=== PATIENT | female | born 1965 | race Caucasian/White ===

== ENCOUNTER 2017-12-15 08:11 | Emergency (ER) | payer OTHER ==
[2017-12-15 08:45] LABS: BASOPHILS # (AUTO) 0.1 10^3/uL (0.0-0.1); BASOPHILS % (AUTO) 0.9 %; EOSINOPHILS # (AUTO) 0.1 10^3/uL (0.0-0.7); EOSINOPHILS % (AUTO) 1.3 %; HGB - HEMOGLOBIN 14.3 g/dL (12.0-16.0); LYMPHOCYTES # (AUTO) 1.3 10^3/uL (1.5-3.5); LYMPHOCYTES % (AUTO) 20.3 %; MEAN CORPUSCULAR HEMOGLOBIN 30.5 pg (27.0-31.0); MEAN CORPUSCULAR VOLUME 89.5 fL (81.0-99.0); MEAN PLATELET VOLUME 7.8 fL (7.9-10.8); MONOCYTES # (AUTO) 0.4 10^3/uL (0.0-1.0); MONOCYTES % (AUTO) 6.1 %; NEUTROPHILS # (AUTO) 4.6 10^3/uL (1.5-6.6); NEUTROPHILS % (AUTO) 71.4 %; PLT - PLATELET COUNT 214 10^3/uL (130-450); RED CELL DISTRIBUTION WIDTH 13.6 % (12.0-15.0); WHITE BLOOD COUNT 6.5 x10^3/uL (4.8-10.8)
--- NOTE | 2017-12-15 08:47 | ED Physician Documentation ---
PD HPI ABD PAIN - Stated complaint Stated Complaint: ABD PX - Chief complaint Chief Complaint: Abd Pain - History obtained from History obtained from: Patient - History of Present Illness Timing - onset: How many weeks ago (1) Timing - duration: Weeks (1) Timing - details: Gradual onset, Intermittant Quality: Aching, Pain Location: RUQ (R lower rib pain) Worsened by: Eating, Moving Associated symptoms: Nausea. No: Fever, Vomiting, Hematemesis, Diarrhea, Constipation, Melena, Hematochezia, Dysuria Similar symptoms before: Has not had sx before Recently seen: Not recently seen Review of Systems Ten Systems: 10 systems reviewed and negative Constitutional: denies: Fever, Chills Ears: denies: Ear pain Nose: denies: Rhinorrhea / runny nose, Congestion Throat: denies: Sore throat Cardiac: denies: Chest pain / pressure, Palpitations Respiratory: denies: Dyspnea, Cough, Wheezing GI: reports: Nausea. 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 - Present Medications Home Medications: Ambulatory Orders Medication Instructions Recorded Confirmed Aspirin [Asperdrink] 81 mg PO 01/08/13 10/13/14 Metoprolol Succinate [Toprol Xl] 12.5 mg PO ONCE 01/08/13 10/13/14 Loratadine [Claritin] 10 mg PO BID 12/15/17 Polyethylene Glycol 3350 [Miralax] 17 gm PO DAILY PRN #1 bottle 12/15/17 Tumeric 12/15/17 raNITIdine [Zantac] 150 mg PO DAILY 12/15/17 - Allergies Allergies/Adverse Reactions: Allergies Allergy/AdvReac Type Severity Reaction Status Date / Time soy Allergy Nausea Verified 12/15/17 08:19 Sulfa (Sulfonamide Allergy Nausea Verified 12/15/17 08:19 Antibiotics) - Social History Does the pt smoke?: No Smoking Status: Never smoker Does the pt drink ETOH?: Yes Does the pt have substance abuse?: No - Immunizations Immunizations are current?: Yes - POLST Patient has POLST: No PD ED PE NORMAL - Vitals Vital signs reviewed: Yes - General General: Alert and oriented X 3, No acute distress - HEENT HEENT: Moist mucous membranes - Neck Neck: Supple, no meningeal sign - Cardiac Cardiac: RRR, Strong equal pulses - Respiratory Respiratory: No respiratory distress, Clear bilaterally - Abdomen Abdomen: Soft, Non distended, Other (TTP RUQ, equivocal araiza's sign) - Back Back: No CVA TTP, No spinal TTP - Derm Derm: Warm and dry, No rash - Neuro Neuro: Alert and oriented X 3 - Psych Psych: Normal mood, Normal affect Results - Vitals Vitals: Vital Signs - 24 hr 12/15/17 12/15/17 12/15/17 08:17 11:25 12:23 Temperature 36.7 C 36.5 C Heart Rate 84 81 81 Respiratory 16 16 14 Rate Blood Pressure 124/73 112/79 102/69 O2 Saturation 100 100 98 Oxygen O2 Source Room air - Labs Labs: Laboratory Tests 12/15/17 12/15/17 12/15/17 08:25 08:32 08:32 WBC 6.5 RBC 4.70 Hgb 14.3 Hct 42.0 MCV 89.5 MCH 30.5 MCHC 34.0 RDW 13.6 Plt Count 214 MPV 7.8 L Neut # 4.6 Lymph # 1.3 L [place] # 0.4 Eos # 0.1 Baso # 0.1 Absolute Nucleated RBC 0.00 Nucleated RBC % 0.0 Sodium 137 Potassium 3.4 L Chloride 104 Carbon Dioxide 27 Anion Gap 6.0 BUN 9 Creatinine 0.7 Estimated GFR (MDRD) 88 L Glucose 105 H Calcium 8.9 Total Bilirubin 0.6 AST 17 ALT 12 Alkaline Phosphatase 39 L Total Protein 7.4 Albumin 4.4 Globulin 3.0 Albumin/Globulin Ratio 1.5 Lipase 23 Urine Color STRAW Urine Clarity CLEAR Urine pH 6.5 Ur Specific [place] <=1.005 Urine Protein NEGATIVE Urine Glucose (UA) NEGATIVE Urine Ketones NEGATIVE Urine Occult Blood TRACE-LYSE Urine Nitrite NEGATIVE Urine Bilirubin NEGATIVE Urine Urobilinogen 0.2 (NORMAL) Ur Leukocyte Esterase NEGATIVE Ur Microscopic Review NOT INDICATED Urine Culture Comments NOT INDICATED - Rads (name of study) RUQ US Radiology: Prelim report reviewed, EMP read contemporaneously, See rad report ( Fatty infiltrated liver. No gallstone or biliary ductal dilatation. ) PD MEDICAL DECISION MAKING - ED course Complexity details: reviewed results, re-evaluated patient, considered differential, d/w patient, d/w family ED course: Patient is a 52-year-old female with right upper quadrant abdominal pain of unclear etiology. No acute findings on laboratory testing. Abdomen is soft, nontender nondistended on serial examination. She is very well-appearing, nontoxic.. Symptoms did not change much with GI cocktail. She does relate that she has been constipated we will try her on MiraLAX for home. We will see how she progresses over the next 2-3 days and follow-up closely with her doctor. Patient counseled regarding signs and symptoms for which I believe and urgent re-evaluation would be necessary. Patient with good understanding of and agreement to plan and is comfortable going home at this time This document was made in part using voice recognition software. While efforts are made to proofread this document, sound alike and grammatical errors may occur. Departure - Departure Disposition: 01 Home, Self Care Clinical Impression: Abdominal pain Qualifiers: Abdominal location: right upper quadrant Qualified Code(s): R10.11 - Right upper quadrant pain Condition: Good Instructions: ED Abdominal Pain Unkn Cause Follow-Up: LINDA LÓPEZ [Primary Care Provider] - Within 3 Days Prescriptions: Polyethylene Glycol 3350 [Miralax] 17 gm PO DAILY PRN #1 bottle PRN Reason: Constipation Comments: Return if you worsen. The cause of your symptoms is unclear today. Discharge Date/Time: 12/15/17 12:23
[2017-12-15 08:53] LABS: ALBUMIN 4.4 g/dL (3.2-5.5); ALBUMIN/GLOBULIN RATIO 1.5 (1.0-2.2); BILIRUBIN,TOTAL 0.6 mg/dL (0.2-1.0); CALCIUM 8.9 mg/dL (8.5-10.3); CREATININE 0.7 mg/dL (0.4-1.0); TOTAL PROTEIN 7.4 g/dL (6.7-8.2)
[2017-12-15 09:01] LABS: BILIRUBIN,URINE NEGATIVE (NEGATIVE); GLUCOSE, URINE (UA) NEGATIVE (NEGATIVE); KETONES,URINE (UA) NEGATIVE (NEGATIVE); LEUKOCYTE ESTERASE, URINE NEGATIVE (NEGATIVE); NITRITE,URINE NEGATIVE (NEGATIVE); OCCULT BLOOD,URINE TRACE-LYSE (NEGATIVE); PH,URINE 6.5 PH (5.0-7.5); PROTEIN,URINE NEGATIVE (NEGATIVE); UROBILINOGEN,URINE 0.2 (NORMAL) E.U./dL (NORMAL)
[2017-12-15] MEDS ORDERED: LIDOCAINE VISCOUS 2% 15 ML UDC MM STA (09:02)
[2017-12-15] MEDS ORDERED: PHENobarb/HYOSCY/ATROPINE/SCOP 5 ML UDC PO STA (09:02)
[2017-12-15] MEDS ORDERED: MAG HYDROX/AL HYDROX/SIMETH 30 ML UDC PO STA (09:02)
[2017-12-15] MEDS ORDERED: SUCRALFATE 1 GM/10 ML UDC PO STA (09:02)
[2017-12-15 09:05] LABS: CLARITY,URINE CLEAR (CLEAR)
--- NOTE | 2017-12-15 11:51 | Ultrasound Report ---
EXAM: ABDOMEN ULTRASOUND LIMITED, RUQ EXAM DATE: 12/15/2017 10:57 AM. CLINICAL HISTORY: RUQ pain. COMPARISON: None. TECHNIQUE: Real-time scanning was performed with static images obtained. FINDINGS: Liver: The parenchyma is echogenic diffusely. No definite focal masses are identified, but evaluatio n is limited secondary to the echogenicity. 14.8 cm. Main portal vein flow: Hepatopetal. Gallbladder: Normal. No stones, wall thickening, or sonographic Shaw's sign. Biliary System: CBD measures 4 mm. No intrahepatic or extrahepatic ductal dilatation. Other: Right kidney measured 11.3 cm longitudinally. No right hydronephrosis. IMPRESSION: 1. Fatty infiltrated liver. 2. No gallstone or biliary ductal dilatation. [facility] Referring Provider Line: [phone] SITE ID: [id number]
--- NOTE | 2017-12-15 11:51 | Ultrasound Preliminary Report ---
Exam: US ABDOMEN LIMITED IMPRESSION: 1. Fatty infiltrated liver. 2. No gallstone or biliary ductal dilatation. [facility] SITE ID: [id number]
[2017-12-15 12:23] VITALS: BP 102/69
== END 2017-12-15 12:23 | disposition home or self-care (01) ==
LOC: ED 08:11
DX: R10.11 Right upper quadrant pain (principal); Z79.82 Long term (current) use of aspirin
CPT/HCPCS: 36415; 76705; 80053; 81003; 83690; 85025; 99283; A9270; 81001; 87086

== ENCOUNTER 2017-12-21 06:55 | Emergency (ER) | payer OTHER ==
--- NOTE | 2017-12-21 07:34 | ED Physician Documentation ---
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 She soaks up to 1 pad every 2 hours. It is mostly bright red blood, with few small clots. She reports irregular menses, with 2 light menstrual periods previously in the past month. She reports associated right- sided lower abdominal pain. She also reports nausea, without vomiting. She denies fever or dysuria. She denies history of similar symptoms in the past. She was seen in the emergency department here 6 days ago with right upper quadrant abdominal pain. She was not experiencing vaginal bleeding at that time. She underwent an ultrasound of the right upper quadrant which revealed a fatty liver, but no other abnormalities. Surgical history: Status post C- section. Review of Systems Constitutional: denies: Fever Nose: denies: Congestion Cardiac: denies: Chest pain / pressure Respiratory: denies: Dyspnea, Cough GI: reports: Abdominal Pain, Nausea. denies: Vomiting, Diarrhea : reports: Vaginal bleeding, Irregular menses. 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 - Present Medications Home Medications: Ambulatory Orders Medication Instructions Recorded Confirmed Aspirin [Asperdrink] 81 mg PO 01/08/13 10/13/14 Metoprolol Succinate [Toprol Xl] 12.5 mg PO ONCE 01/08/13 10/13/14 Loratadine [Claritin] 10 mg PO BID 12/15/17 Polyethylene Glycol 3350 [Miralax] 17 gm PO DAILY PRN #1 bottle 12/15/17 Tumeric 12/15/17 raNITIdine [Zantac] 150 mg PO DAILY 12/15/17 Ibuprofen 1 tab PO 12/21/17 - Allergies Allergies/Adverse Reactions: Allergies Allergy/AdvReac Type Severity Reaction Status Date / Time soy Allergy Nausea Verified 12/21/17 07:01 Sulfa (Sulfonamide Allergy Nausea Verified 12/21/17 07:01 Antibiotics) - Social History Does the pt smoke?: No Smoking Status: Never smoker Does the pt drink ETOH?: Yes Does the pt have substance abuse?: No - Immunizations Immunizations are current?: Yes - POLST Patient has POLST: No PD ED PE NORMAL - Vitals Vital signs reviewed: Yes (Normal) - General General: Alert and oriented X 3, Well developed/nourished - HEENT HEENT: Atraumatic, Moist mucous membranes, Pharynx benign - Neck Neck: No adenopathy, No JVD - Cardiac Cardiac: RRR, No murmur - Respiratory Respiratory: No respiratory distress, Clear bilaterally - Abdomen Abdomen: Normal bowel sounds, Soft, Non tender, Non distended, Other (Benign abdomen.) - Female Female : 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 No: CMT, Tissue present, Adnexal Mass, Adnexal Tenderness Results - Vitals Vitals: Oxygen O2 Source Room air - Labs Labs: Laboratory Tests 12/21/17 12/21/17 12/21/17 07:22 07:22 07:30 WBC 6.1 RBC 4.10 L Hgb 12.4 Hct 36.6 L MCV 89.1 MCH 30.3 MCHC 34.0 RDW 13.4 Plt Count 195 MPV 7.6 L Neut # 4.4 Lymph # 1.2 L [place] # 0.4 Eos # 0.1 Baso # 0.0 Absolute Nucleated RBC 0.00 Nucleated RBC % 0.0 Sodium Potassium Chloride Carbon Dioxide Anion Gap BUN Creatinine Estimated GFR (MDRD) Glucose Calcium Total Bilirubin AST ALT Alkaline Phosphatase Total Protein Albumin Globulin Albumin/Globulin Ratio Lipase Urine Color YELLOW Urine Clarity CLEAR Urine pH 6.5 Ur Specific [place] 1.020 1.020 Urine Protein NEGATIVE Urine Glucose (UA) NEGATIVE Urine Ketones NEGATIVE Urine Occult Blood MODERATE H Urine Nitrite NEGATIVE Urine Bilirubin NEGATIVE Urine Urobilinogen 0.2 (NORMAL) Ur Leukocyte Esterase NEGATIVE Urine RBC 0-5 Urine WBC 0-3 Ur Squamous Epith Cells NONE SEEN Urine Bacteria Rare Ur Microscopic Review INDICATED Urine Culture Comments NOT INDICATED Urine HCG, Qual NEGATIVE 12/21/17 07:30 WBC RBC Hgb Hct MCV MCH MCHC RDW Plt Count MPV Neut # Lymph # [place] # Eos # Baso # Absolute Nucleated RBC Nucleated RBC % Sodium 138 Potassium 3.6 Chloride 104 Carbon Dioxide 26 Anion Gap 8.0 BUN 12 Creatinine 0.7 Estimated GFR (MDRD) 88 L Glucose 113 H Calcium 8.7 Total Bilirubin 0.6 AST 17 ALT 11 Alkaline Phosphatase 32 L Total Protein 6.7 Albumin 3.9 Globulin 2.8 Albumin/Globulin Ratio 1.4 Lipase 23 Urine Color Urine Clarity Urine pH Ur Specific [place] Urine Protein Urine Glucose (UA) Urine Ketones Urine Occult Blood Urine Nitrite Urine Bilirubin Urine Urobilinogen Ur Leukocyte Esterase Urine RBC Urine WBC Ur Squamous Epith Cells Urine Bacteria Ur Microscopic Review Urine Culture Comments Urine HCG, Qual PD MEDICAL DECISION MAKING - ED course Complexity details: reviewed old records, reviewed results, re-evaluated patient , considered differential, d/w patient, d/w family, d/w PMD ED course: The patient's presentation is most consistent with dysfunctional uterine bleeding in a logan-menopausal female. CBC is normal with a hemoglobin of 12.4. Her abdominal exam is benign, and her pelvic exam reveals no appreciable abnormalities except for blood in the vaginal vault. I discussed her condition with her operations tech, who recommends follow-up in his clinic where he will pursue further workup as an outpatient. I discussed with the patient and her the results of her ED workup, I discussion with her operations tech, outpatient follow-up, as well as potentially worrisome signs or symptoms that should prompt reevaluation in the emergency department. 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 Call today to schedule an appointment for early next week. Return to the emergency department if you develop increasing vaginal bleeding, lightheadedness, increasing abdominal pain, or otherwise worsening symptoms. Discharge Date/Time: 12/21/17 09:23
[2017-12-21 07:41] LABS: BASOPHILS % (AUTO) 0.8 %; EOSINOPHILS # (AUTO) 0.1 10^3/uL (0.0-0.7); HGB - HEMOGLOBIN 12.4 g/dL (12.0-16.0); LYMPHOCYTES # (AUTO) 1.2 10^3/uL (1.5-3.5); LYMPHOCYTES % (AUTO) 18.9 %; MEAN CORPUSCULAR HEMOGLOBIN 30.3 pg (27.0-31.0); MEAN CORPUSCULAR VOLUME 89.1 fL (81.0-99.0); MEAN PLATELET VOLUME 7.6 fL (7.9-10.8); MONOCYTES # (AUTO) 0.4 10^3/uL (0.0-1.0); NEUTROPHILS # (AUTO) 4.4 10^3/uL (1.5-6.6); NEUTROPHILS % (AUTO) 72.3 %; PLT - PLATELET COUNT 195 10^3/uL (130-450); RED CELL DISTRIBUTION WIDTH 13.4 % (12.0-15.0); WHITE BLOOD COUNT 6.1 x10^3/uL (4.8-10.8)
[2017-12-21 08:00] LABS: ALBUMIN 3.9 g/dL (3.2-5.5); ALBUMIN/GLOBULIN RATIO 1.4 (1.0-2.2); BILIRUBIN,TOTAL 0.6 mg/dL (0.2-1.0); CALCIUM 8.7 mg/dL (8.5-10.3); CREATININE 0.7 mg/dL (0.4-1.0); TOTAL PROTEIN 6.7 g/dL (6.7-8.2)
[2017-12-21 08:16] LABS: BILIRUBIN,URINE NEGATIVE (NEGATIVE); GLUCOSE, URINE (UA) NEGATIVE (NEGATIVE); KETONES,URINE (UA) NEGATIVE (NEGATIVE); LEUKOCYTE ESTERASE, URINE NEGATIVE (NEGATIVE); NITRITE,URINE NEGATIVE (NEGATIVE); OCCULT BLOOD,URINE MODERATE (NEGATIVE); PH,URINE 6.5 PH (5.0-7.5); PROTEIN,URINE NEGATIVE (NEGATIVE); UROBILINOGEN,URINE 0.2 (NORMAL) E.U./dL (NORMAL)
[2017-12-21 08:19] LABS: CLARITY,URINE CLEAR (CLEAR); HCG UR QUAL NEGATIVE
[2017-12-21 08:24] LABS: BACTERIA,URINE Rare /HPF (None Seen); RBC,URINE 0-5 /HPF (0-5); SQUAMOUS EPITHELIAL CELL,UR NONE SEEN (<= Few)
[2017-12-21 09:19] VITALS: BP 109/72
== END 2017-12-21 09:23 | disposition home or self-care (01) ==
LOC: ED 06:55
DX: N93.8 Other specified abnormal uterine and vaginal bleeding (principal); N92.4 Excessive bleeding in the premenopausal period; Z79.82 Long term (current) use of aspirin
CPT/HCPCS: 36415; 80053; 81001; 81003; 81025; 83690; 85025; 87086; 87491; 87591; 99283

== ENCOUNTER 2018-01-06 14:28 | Emergency (ER) | payer OTHER ==
[2018-01-06 15:02] VITALS: BP 111/79
[2018-01-06 15:30] LABS: BASOPHILS # (AUTO) 0.1 10^3/uL (0.0-0.1); BASOPHILS % (AUTO) 1.7 %; EOSINOPHILS # (AUTO) 0.1 10^3/uL (0.0-0.7); EOSINOPHILS % (AUTO) 0.8 %; HGB - HEMOGLOBIN 13.6 g/dL (12.0-16.0); LYMPHOCYTES # (AUTO) 1.6 10^3/uL (1.5-3.5); LYMPHOCYTES % (AUTO) 23.7 %; MEAN CORPUSCULAR HEMOGLOBIN 30.8 pg (27.0-31.0); MEAN CORPUSCULAR VOLUME 90.7 fL (81.0-99.0); MEAN PLATELET VOLUME 7.4 fL (7.9-10.8); MONOCYTES # (AUTO) 0.4 10^3/uL (0.0-1.0); MONOCYTES % (AUTO) 5.8 %; NEUTROPHILS # (AUTO) 4.6 10^3/uL (1.5-6.6); PLT - PLATELET COUNT 218 10^3/uL (130-450); RED BLOOD COUNT 4.43 10^6/uL (4.20-5.40); RED CELL DISTRIBUTION WIDTH 13.6 % (12.0-15.0); WHITE BLOOD COUNT 6.8 x10^3/uL (4.8-10.8)
[2018-01-06 15:44] LABS: ALBUMIN 4.2 g/dL (3.2-5.5); ALBUMIN/GLOBULIN RATIO 1.4 (1.0-2.2); BILIRUBIN,TOTAL 0.6 mg/dL (0.2-1.0); CALCIUM 8.9 mg/dL (8.5-10.3); CREATININE 0.6 mg/dL (0.4-1.0); TOTAL PROTEIN 7.2 g/dL (6.7-8.2)
--- NOTE | 2018-01-06 15:52 | ED Physician Documentation ---
PD HPI ABD PAIN - Stated complaint Stated Complaint: UP RT AB PX - Chief complaint Chief Complaint: Abd Pain - History obtained from History obtained from: Patient, Family - History of Present Illness Timing - duration: Months (1) Timing - details: Gradual onset, Waxing and waning Pain level max: 6 Pain level now: 5 Quality: Aching, Pain Location: RUQ, RLQ Radiation: Other (non-radiating) Improved by: Other (nothing) Worsened by: Eating Associated symptoms: No: Fever, Nausea, Vomiting, Hematemesis, Diarrhea, Constipation, Melena, Hematochezia, Dysuria, Hematuria Similar symptoms before: Diagnosis (abd pain, unknown origin.) Recently seen: Clinic ( and had CT scan. Unknown results.), Emergency Dept (last month for same. normal labs and RUQ US.) Review of Systems Constitutional: denies: Fever, Chills Ears: denies: Ear pain Nose: denies: Rhinorrhea / runny nose, Congestion Throat: denies: Sore throat Cardiac: denies: Chest pain / pressure Respiratory: denies: Cough GI: reports: Nausea. 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 - Present Medications Home Medications: Ambulatory Orders Medication Instructions Recorded Confirmed Aspirin [Asperdrink] 81 mg PO 01/08/13 10/13/14 Metoprolol Succinate [Toprol Xl] 12.5 mg PO ONCE 01/08/13 10/13/14 Loratadine [Claritin] 10 mg PO BID 12/15/17 Polyethylene Glycol 3350 [Miralax] 17 gm PO DAILY PRN #1 bottle 12/15/17 Tumeric 12/15/17 raNITIdine [Zantac] 150 mg PO DAILY 12/15/17 Ibuprofen 1 tab PO 12/21/17 Ondansetron Odt [Zofran] 4 mg TL Q6H PRN #10 tablet 01/06/18 Peg 3350/Na Sulf,Bicarb,Cl/KCl 4,000 ml PO ONCE #1 bottle 01/06/18 [Golytely] - Allergies Allergies/Adverse Reactions: Allergies Allergy/AdvReac Type Severity Reaction Status Date / Time soy Allergy Nausea Verified 12/21/17 07:01 Sulfa (Sulfonamide Allergy Nausea Verified 12/21/17 07:01 Antibiotics) - Social History Does the pt smoke?: No Smoking Status: Never smoker Does the pt drink ETOH?: Yes Does the pt have substance abuse?: No - Immunizations Immunizations are current?: Yes - POLST Patient has POLST: No PD ED PE NORMAL - Vitals Vital signs reviewed: Yes - General General: Alert and oriented X 3, No acute distress - HEENT HEENT: Moist mucous membranes - Neck Neck: Supple, no meningeal sign - Cardiac Cardiac: RRR - Respiratory Respiratory: Clear bilaterally - Abdomen Abdomen: Normal bowel sounds, Soft, Non tender, Non distended, No organomegaly - Back Back: No CVA TTP, No spinal TTP - Derm Derm: Warm and dry, No rash - Extremities Extremities: No edema - Neuro Neuro: Alert and oriented X 3 - Psych Psych: Normal mood, Normal affect Results - Vitals Vitals: Vital Signs - 24 hr 01/06/18 14:55 Temperature 37.0 C Heart Rate 94 Respiratory 16 Rate Blood Pressure 111/79 O2 Saturation 100 Oxygen O2 Source Room air - Labs Labs: Laboratory Tests 01/06/18 01/06/18 15:26 15:26 WBC 6.8 RBC 4.43 Hgb 13.6 Hct 40.1 MCV 90.7 MCH 30.8 MCHC 34.0 RDW 13.6 Plt Count 218 MPV 7.4 L Neut # (Auto) 4.6 Lymph # (Auto) 1.6 [place] # (Auto) 0.4 Eos # (Auto) 0.1 Baso # (Auto) 0.1 Absolute Nucleated RBC 0.00 Nucleated RBC % 0.0 Sodium 135 Potassium 3.2 L Chloride 102 Carbon Dioxide 25 Anion Gap 8.0 BUN 10 Creatinine 0.6 Estimated GFR (MDRD) 105 Glucose 105 H Calcium 8.9 Total Bilirubin 0.6 AST 18 ALT 11 Alkaline Phosphatase 36 L Total Protein 7.2 Albumin 4.2 Globulin 3.0 Albumin/Globulin Ratio 1.4 Lipase 27 PD MEDICAL DECISION MAKING - ED course Complexity details: reviewed results, re-evaluated patient, considered differential, d/w patient, d/w [employer] iam consultant ED course: CT scan from 01/03/18 performed at [facility] report reviewed with Janis over the phone. Only acute findings are a stool filled colon and prominent endometrial stripe. Patient is a 52-year-old female with ongoing abdominal pain over the past month. Recent CT scan shows significant constipation, we will trial her on laxatives for this and see how this changes her symptoms. She is tolerating p.o. without difficulty here. Well-appearing, nontoxic. Afebrile. No acute laboratory abnormalities. Recommend that she follow-up with her doctor for further care and if her symptoms are not resolved after treatment for constipation, she may benefit from a HIDA scan to ensure she does not have any biliary dysfunction. Patient and family counseled regarding signs and symptoms for which I believe and urgent re-evaluation would be necessary. Patient with good understanding of and agreement to plan and is comfortable going home at this time This document was made in part using voice recognition software. While efforts are made to proofread this document, sound alike and grammatical errors may occur. - Sepsis Event Vital Signs: Vital Signs - 24 hr 01/06/18 14:55 Temperature 37.0 C Heart Rate 94 Respiratory 16 Rate Blood Pressure 111/79 O2 Saturation 100 Oxygen O2 Source Room air Departure - Departure Disposition: 01 Home, Self Care Clinical Impression: Abdominal pain Qualifiers: Abdominal location: unspecified location Qualified Code(s): R10.9 - Unspecified abdominal pain Constipation Qualifiers: Constipation type: unspecified constipation type Qualified Code(s): K59.00 - Constipation, unspecified Condition: Good Instructions: ED Constipation Follow-Up: LINDA LÓPEZ [Primary Care Provider] - Within 1 week Prescriptions: Ondansetron Odt [Zofran] 4 mg TL Q6H PRN #10 tablet PRN Reason: Nausea / Vomiting Peg 3350/Na Sulf,Bicarb,Cl/KCl [Golytely] 4,000 ml PO ONCE #1 bottle Comments: Return if you worsen. You may benefit from a colonoscopy and hida scan with your doctor. Discharge Date/Time: 01/06/18 17:06
== END 2018-01-06 17:06 | disposition home or self-care (01) ==
LOC: ED 14:28
DX: R10.9 Unspecified abdominal pain (principal); K59.00 Constipation, unspecified
CPT/HCPCS: 36415; 80053; 83690; 85025; 99283

== ENCOUNTER 2018-05-06 08:37 | Emergency (ER) | payer OTHER ==
[2018-05-06 08:58] LABS: BILIRUBIN,URINE NEGATIVE (NEGATIVE); GLUCOSE, URINE (UA) NEGATIVE (NEGATIVE); KETONES,URINE (UA) NEGATIVE (NEGATIVE); LEUKOCYTE ESTERASE, URINE SMALL (NEGATIVE); NITRITE,URINE NEGATIVE (NEGATIVE); OCCULT BLOOD,URINE LARGE (NEGATIVE); PROTEIN,URINE NEGATIVE (NEGATIVE); UROBILINOGEN,URINE 0.2 (NORMAL) E.U./dL (NORMAL)
[2018-05-06 09:01] LABS: CLARITY,URINE CLEAR (CLEAR)
[2018-05-06 09:16] LABS: BACTERIA,URINE Rare /HPF (None Seen); RBC,URINE 0-5 /HPF (0-5); SQUAMOUS EPITHELIAL CELL,UR RARE Squamous (<= Few)
--- NOTE | 2018-05-06 10:07 | ED Physician Documentation ---
History of Present Illness - Stated complaint Stated Complaint: FEMALE - Chief complaint Chief Complaint: UTI - Additonal information Additional information: hx from pt 53 f dysuria X few days no back pain suprapubic discomfort Review of Systems Constitutional: denies: Fever Cardiac: denies: Chest pain / pressure Respiratory: denies: Dyspnea GI: reports: Abdominal Pain (suprapubic) : reports: Dysuria, Hematuria (red urine) Musculoskeletal: reports: Back pain PD PAST MEDICAL HISTORY - Past Medical History Past Medical History: Yes Cardiovascular: Arrhythmia GI: GERD : None Musculoskeletal: None - Past Surgical History 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 - Present Medications Home Medications: Ambulatory Orders Medication Instructions Recorded Confirmed Aspirin [Asperdrink] 81 mg PO 01/08/13 10/13/14 Metoprolol Succinate [Toprol Xl] 12.5 mg PO ONCE 01/08/13 10/13/14 Loratadine [Claritin] 10 mg PO BID 12/15/17 Polyethylene Glycol 3350 [Miralax] 17 gm PO DAILY PRN #1 bottle 12/15/17 Tumeric 12/15/17 raNITIdine [Zantac] 150 mg PO DAILY 12/15/17 Ibuprofen 1 tab PO 12/21/17 Ondansetron Odt [Zofran] 4 mg TL Q6H PRN #10 tablet 01/06/18 Peg 3350/Na Sulf,Bicarb,Cl/KCl 4,000 ml PO ONCE #1 bottle 01/06/18 [Golytely] Cephalexin [Keflex] 500 mg PO Q6H #28 capsule 05/06/18 - Allergies Allergies/Adverse Reactions: Allergies Allergy/AdvReac Type Severity Reaction Status Date / Time soy Allergy Nausea Verified 12/21/17 07:01 Sulfa (Sulfonamide Allergy Nausea Verified 12/21/17 07:01 Antibiotics) - Social History Does the pt smoke?: No Smoking Status: Never smoker Does the pt drink ETOH?: Yes Does the pt have substance abuse?: No - Immunizations Immunizations are current?: Yes - POLST Patient has POLST: No PD ED PE NORMAL - Vitals Vital signs reviewed: Yes - Neck Neck: Supple, no meningeal sign - Cardiac Cardiac: RRR - Respiratory Respiratory: No respiratory distress - Abdomen Abdomen: Soft, Other (mild suprapubic TTP, no focal RLQ TTP) - Back Back: No CVA TTP - Derm Derm: Normal color Results - Vitals Vitals: Vital Signs - 24 hr 05/06/18 08:42 Temperature 36.5 C Heart Rate 86 Respiratory 16 Rate Blood Pressure 115/70 O2 Saturation 100 Oxygen O2 Source Room air - Labs Labs: Laboratory Tests 05/06/18 08:40 Urine Color YELLOW Urine Clarity CLEAR Urine pH 6.0 Ur Specific [place] <=1.005 Urine Protein NEGATIVE Urine Glucose (UA) NEGATIVE Urine Ketones NEGATIVE Urine Occult Blood LARGE H Urine Nitrite NEGATIVE Urine Bilirubin NEGATIVE Urine Urobilinogen 0.2 (NORMAL) Ur Leukocyte Esterase SMALL H Urine RBC 0-5 Urine WBC 6-10 H Ur Squamous Epith Cells RARE Squamous Urine Bacteria Rare Ur Microscopic Review INDICATED Urine Culture Comments INDICATED PD MEDICAL DECISION MAKING - ED course ED course: red urine could have been the azo/pyridium she took or beets she ate - neg RBC on micro and no back pain - Sepsis Event Vital Signs: Vital Signs - 24 hr 05/06/18 08:42 Temperature 36.5 C Heart Rate 86 Respiratory 16 Rate Blood Pressure 115/70 O2 Saturation 100 Oxygen O2 Source Room air Departure - Departure Disposition: 01 Home, Self Care Clinical Impression: Urinary tract infection Qualifiers: Urinary tract infection type: acute cystitis Hematuria presence: without hematuria Qualified Code(s): N30.00 - Acute cystitis without hematuria Condition: Good Instructions: ED UTI Cystitis Female Follow-Up: LINDA LÓPEZ [Primary Care Provider] - (for a repeat urine test after completing antibiotics ) Prescriptions: Cephalexin [Keflex] 500 mg PO Q6H #28 capsule
[2018-05-06 10:15] VITALS: BP 104/77
== END 2018-05-06 10:18 | disposition home or self-care (01) ==
LOC: ED 08:37
DX: N30.00 Acute cystitis without hematuria (principal); Z79.82 Long term (current) use of aspirin
CPT/HCPCS: 81001; 81003; 87086; 87181; 99283

== ENCOUNTER 2019-08-07 07:39 | Day surgery (SDC) | payer OTHER ==
[2019-08-07] MEDS ORDERED: fentaNYL 250 MCG/5 ML VIAL IVP ONE (07:40)
[2019-08-07] MEDS ORDERED: MIDAZOLAM 2 MG/2 ML VIAL IVP ONE (07:40)
[2019-08-07] MEDS ORDERED: LACTATED RINGERS 1,000 ML IV ONE (07:49)
[2019-08-07 08:48] LABS: HCG UR QUAL NEGATIVE
[2019-08-07 10:45] VITALS: BP 102/75
== END 2019-08-07 07:40 | disposition home or self-care (01) ==
LOC: SDS 07:39
PROVIDERS: ATTEND Surgery
PROC: 0DJD8ZZ Inspection of Lower Intestinal Tract, Via Natural or Artificial Opening Endoscopic (ICD-10-PCS; principal; 2019-08-07 09:00)
DX: Z12.11 Encounter for screening for malignant neoplasm of colon (principal); K64.8 Other hemorrhoids
CPT/HCPCS: 81025

== ENCOUNTER 2019-09-01 10:08 | Outpatient (CLI) | payer OTHER ==
--- NOTE | 2019-09-16 15:04 | Mammography Report ---
Reason: ROUTINE MAMMO Procedure Date: 09/01/2019 Accession Number: [id number] / [id number] Procedure: MGS - Screening Mammo Dig Bilat CPT Code: Final Report FULL RESULT: EXAM: Screening Mammo Dig Bilat DATE: 09/01/2019 10:40 AM CLINICAL HISTORY: Screening encounter. History of early menses. History of prior breast biopsy on both sides with benign pathology. TECHNIQUE: (B) - Bilateral CC, laterally exaggerated CC, MLO views were obtained. COMPARISON: 05/20/2018 through 09/21/2015. PARENCHYMAL PATTERN: (VD) - The breast(s) demonstrate(s) extremely dense parenchyma, limiting the sensitivity of mammography. FINDINGS: A biopsy clip is again seen in the central left breast, unchanged. There are no suspicious masses, calcifications, or areas of distortion. IMPRESSION: Benign findings. BI-RADS category 2. RECOMMENDATION: (ANNUAL) - Recommend routine annual screening mammography. BI-RADS CATEGORY: (2) - Benign Findings. STANDARD QUALIFYING STATEMENTS: 1. This examination was reviewed with the aid of Computer-Aided Detection (CAD). 2. A negative or benign imaging report should not preclude biopsy if clinically suspicious findings are present. 3. Dense breasts may obscure an underlying neoplasm. 4. This examination was reviewed without the aid of 3D breast imaging (tomosynthesis).
== END 2019-09-01 10:09 | disposition home or self-care (01) ==
LOC: DI.S 10:08
DX: Z12.31 Encounter for screening mammogram for malignant neoplasm of breast (principal)
CPT/HCPCS: 77067

== ENCOUNTER 2020-08-23 09:16 | Outpatient (CLI) | payer OTHER ==
--- NOTE | 2020-08-23 12:00 | MRI Report ---
PROCEDURE: Lumbar Spine W/O INDICATIONS: LOW BACK PAIN TECHNIQUE: Noncontrast sagittal T1 spin echo and T2 fast echo, sagittal STIR, axial T1 and T2 fast spin echo thr ough the lumbar spine. In cases with scoliosis, additional coronal T2 fast spin echo may be performe d. COMPARISON: None. FINDINGS: Image quality: Excellent. Alignment and Curvature: No plain films are available for comparison. Thus, for numbering purposes, 5 lumbar type vertebral bodies will be presumed for the current report. This should be confirmed with plain film correlation prior to any lumbar spinal intervention. There is normal bony alignment. Bone Marrow: Marrow is of normal overall signal. No acute vertebral body compression fractures. Mi nimal reactive signal within the endplates adjacent to the L3-L4, L4-L5, and L5-S1 intervertebral dis cs. Spinal Cord: Conus medullaris terminates at the lower L1 level. Visualized cord demonstrates normal signal and size. Paraspinous Soft Tissues: No paravertebral masses. T12-L1: Normal in appearance. L1-L2: Normal in appearance. L2-L3: Mild disc desiccation and diffuse disc bulge. Mild facet and ligament flavum hypertrophy. M ild canal stenosis. Mild bilateral foraminal stenosis. L3-L4: Mild disc desiccation and diffuse disc bulge. Mild facet and ligament flavum hypertrophy. Mi ld epidural lipomatosis. Mild canal stenosis. Mild bilateral foraminal stenosis. L4-L5: Mild diffuse disc bulge. Mild facet and ligament flavum hypertrophy. Mild canal stenosis. Mi ld bilateral foraminal stenosis. L5-S1: Moderate disc height loss and desiccation. Mild diffuse disc bulge. Mild facet and ligament flavum hypertrophy. Mild canal stenosis. Mild left greater than right foraminal stenosis. IMPRESSION: 1. Multilevel degenerative disc and facet disease, in addition to epidural lipomatosis and ligamentum flavum hypertrophy. 2. Mild multilevel canal and foraminal stenoses. No neural impingement. Reviewed by: Carlin Goins MD on 08/23/2020 11:59 AM PST Approved by: Carlin Goins MD on 08/23/2020 11:59 AM PST Station ID: [id number]
== END 2020-08-23 09:17 | disposition home or self-care (01) ==
LOC: DI 09:16
PROVIDERS: ATTEND Physician Assistant
DX: M51.36 Other intervertebral disc degeneration, lumbar region (principal); M48.061 Spinal stenosis, lumbar region without neurogenic claudication

== ENCOUNTER 2022-06-24 03:55 | Emergency (ER) | payer OTHER ==
[2022-06-24] MEDS ORDERED: FAMOTIDINE 20 MG/2 ML VIAL IVP STA (04:01)
[2022-06-24] MEDS ORDERED: DEXAMETHASONE 10 MG/ML VIAL IVP STA (04:01)
[2022-06-24 06:24] VITALS: BP 118/81
--- NOTE | 2022-06-24 06:36 | ED Physician Documentation ---
History of Present Illness - Stated complaint Stated Complaint: FACIAL/NECK SWELLING - Chief complaint Chief Complaint: Allergic Rx - History obtained from History obtained from: Patient - Additonal information Additional information: Patient is a 57-year-old female presenting for evaluation of left-sided facial swelling and lower lip swelling that woke her up from her sleep. She reports going to bed with no symptoms. She has never had a reaction like this before. She takes metoprolol for blood pressure but has been on this for a long time. She does not take an OSCAR inhibitor.She felt tightness in her throat. She called EMS and was given IV fluids, 50 mg of Benadryl as well as IM epinephrine. She reports starting to feel improved.She denies any new exposures Or new medications. 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, Other - Present Medications Home Medications: Ambulatory Orders Medication Instructions Recorded Confirmed Metoprolol Succinate [Toprol Xl] 25 mg PO ONCE 01/08/13 06/24/22 Loratadine [Claritin] 10 mg PO BID PRN 12/15/17 06/24/22 Ibuprofen 1 tab PO DAILY 12/21/17 06/24/22 Ergocalciferol [Vitamin D2] 50,000 unit PO Q7D 08/07/19 06/24/22 Lactobacillus Acidophilus 1.5 mg PO DAILY 08/07/19 06/24/22 [Probiotic Acidophilus] Lorazepam [Ativan] 1 mg PO DAILY PRN 08/07/19 06/24/22 Magnesium Oxide [Magnesium] 500 mg PO DAILY 08/07/19 06/24/22 Melatonin 1 mg PO DAILY 08/07/19 06/24/22 Jean-3/Dha/Epa/Fish Oil [Fish Oil 1 each PO DAILY 08/07/19 06/24/22 1,000 mg Softgel] Turmeric/Turmeric Root Extract 1 cap PO DAILY 08/07/19 06/24/22 [Turmeric 500 mg Capsule] Aspirin EC [Ecotrin] 81 mg PO DAILY 06/24/22 06/24/22 Cetirizine [ZyrTEC] 10 mg PO DAILY #7 tablet 06/24/22 EPINEPHrine [Epinephrine] 0.3 mg IJ ONCE PRN #2 each 06/24/22 - Allergies Allergies/Adverse Reactions: Allergies Allergy/AdvReac Type Severity Reaction Status Date / Time amoxicillin Allergy Intermediate Rash Verified 06/24/22 03:59 soy Allergy Nausea Verified 06/24/22 03:59 Sulfa (Sulfonamide Allergy Nausea Verified 06/24/22 03:59 Antibiotics) - Social History Does the pt smoke?: No Smoking Status: Never smoker Does the pt drink ETOH?: Yes Does the pt have substance abuse?: No - Immunizations Immunizations are current?: Yes - POLST Patient has POLST: No PD ED PE NORMAL - General General: Alert and oriented X 3, No acute distress, Well developed/nourished - HEENT HEENT: Atraumatic, Moist mucous membranes, Pharynx benign (No swelling to tongue, uvula, normal phonation), Other (Swelling to left lower lip and left face; No fluctuance or palpable mass) - Neck Neck: Supple, no meningeal sign - Cardiac Cardiac: RRR, Strong equal pulses - Respiratory Respiratory: No respiratory distress, Clear bilaterally - Abdomen Abdomen: Soft, Non tender - Derm Derm: Warm and dry - Extremities Extremities: No edema - Neuro Neuro: Normal speech Results - Vitals Vitals: Vital Signs - 24 hr 06/24/22 06/24/22 06/24/22 03:59 04:07 04:40 Temperature 36.9 C Heart Rate 110 H 108 H 111 H Respiratory 16 21 16 Rate Blood Pressure 140/77 H 136/89 H 128/82 H O2 Saturation 100 100 99 06/24/22 06/24/22 05:50 06:24 Temperature 37.1 C Heart Rate 88 87 Respiratory 14 16 Rate Blood Pressure 128/82 H 118/81 H O2 Saturation 100 100 Oxygen O2 Source Room air PD MEDICAL DECISION MAKING - ED course Complexity details: re-evaluated patient, d/w patient, d/w family ED course: Patient presenting for evaluation of swelling to the left lower lip and left face. Exam is concerning for angioedema. Her speech is normal and I do not see signs of oral swelling such as tongue or uvular edema.Her lungs are clear and vital signs are stable. She did receive IM epi from the paramedics as well as Benadryl. She was also given Decadron. Patient was monitored for several hours. Patient had significant clinical improvement in her symptoms Through this time. She continued to have mild swelling to the left lower lip but it is also improved from her initial presentation.She did not require any further doses of epinephrine.Given that patient had significant improvement in her symptoms feel that is reasonable to discharge home. Patient counseled on continued management as well as strict return precautions. She is instructed to follow-up with her primary care doctor for allergy referral. Departure - Departure Disposition: Home, Self Care Clinical Impression: Angioedema Qualifiers: Encounter type: initial encounter Qualified Code(s): T78.3XXA - Angioneurotic edema, initial encounter Condition: Stable Instructions: ED Angioedema Prescriptions: EPINEPHrine [Epinephrine] 0.3 mg IJ ONCE PRN #2 each PRN Reason: Allergy Symptoms Cetirizine [ZyrTEC] 10 mg PO DAILY #7 tablet Comments: You were treated for an allergic reaction - It is unclear what triggered this. I sent a prescription for an EpiPen And an antihistamine to [facility] in [place]. He did also received a dose of a steroid here which is a long-acting steroid and will continue to be in your system for the next 72 hours. Please make sure to take these medications as prescribed. If you at any time have any worsening or new symptoms then please call 911 or return to the ER immediately. I would also recommend close follow-up with your primary care doctor as you may benefit from a referral to an legal collector given your reaction today.
== END 2022-06-24 06:52 | disposition home or self-care (01) ==
LOC: EDUNIT# → ED 03:55
DX: T78.3XXA Angioneurotic edema, initial encounter (principal)
CPT/HCPCS: 96374; 99282

== ENCOUNTER 2022-09-28 19:45 | Emergency (ER) | payer OTHER ==
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
--- NOTE | 2022-09-28 20:23 | ED Physician Documentation ---
History of Present Illness - Stated complaint Stated Complaint: ABD PX/TONGUE - Chief complaint Chief Complaint: Ext Problem - History obtained from History obtained from: Patient - Additonal information Additional information: Patient states she is having "attack of angioedema", "going on all day" (per patient). Symptoms started this morning without apparent inciting event nor circumstances. Symptoms consist of cramping abdominal pain, bloating sensation of abdomen, and lightheadedness. She says she has had many such previous episodes although only recently was diagnosed with angioedema. Patient has a printed document with her with [facility] letterhead. It is dated 09/14/2022 and indicates patient diagnosed with acquired angioedema, disorder of C1 inhibitor. Said letter points out that epinephrine, glucocorticoids, and antihistamines are all not indicated due to not being effective for this disorder. The letter lists pharmacologic options (C1 inhibitor such as Cinryze, Berinert, or Ruconest), ecallantide (Kalbitor), Icatibant (Firazyr). If none available, can consider FFB, though solvent/detergent-treated plasma preferred. Patient says she self-administered SQ Firazyr at home approximately one hour [employer]; she says she feels mild improvement in symptoms after using this medication. She only had a single dose of this medication at home. She contacted her test eng (spoke with an on-call covering MD), who advised her to come to ED. Patient noted "tongue has been a little swollen" for approximately 2 weeks, but in elaborating on this, she says it is more of a sensation of burning and swelling rather than visible/overt swelling. Denies dyspnea, denies lip swelling, denies sensation of throat constriction. Review of Systems Constitutional: denies: Fever Respiratory: denies: Dyspnea, Cough GI: reports: Abdominal Pain, Abdominal Swelling (bloating sensation), Nausea. 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 - Present Medications Home Medications: Ambulatory Orders Medication Instructions Recorded Confirmed Metoprolol Succinate [Toprol Xl] 25 mg PO ONCE 01/08/13 09/28/22 Loratadine [Claritin] 10 mg PO BID PRN 12/15/17 09/28/22 Ibuprofen 1 tab PO DAILY 12/21/17 06/24/22 Ergocalciferol [Vitamin D2] 50,000 unit PO Q7D 08/07/19 06/24/22 Lactobacillus Acidophilus 1.5 mg PO DAILY 08/07/19 06/24/22 [Probiotic Acidophilus] Lorazepam [Ativan] 1 mg PO DAILY PRN 08/07/19 06/24/22 Magnesium Oxide [Magnesium] 500 mg PO DAILY 08/07/19 06/24/22 Melatonin 1 mg PO DAILY 08/07/19 06/24/22 [place]-3/Dha/Epa/Fish Oil [Fish Oil 1 each PO DAILY 08/07/19 09/28/22 1,000 mg Softgel] Turmeric/Turmeric Root Extract 1 cap PO DAILY 08/07/19 06/24/22 [Turmeric 500 mg Capsule] Cetirizine [ZyrTEC] 10 mg PO DAILY #7 tablet 06/24/22 EPINEPHrine [Epinephrine] 0.3 mg IJ ONCE PRN #2 each 06/24/22 Enoxaparin Sodium [Lovenox] 60 mg SQ BID #14 appful 08/28/22 Apixaban [Eliquis] 5 mg PO BID 09/28/22 09/28/22 Berotralstat Hydrochloride 09/28/22 [Orladeyo] Icatibant Acetate [Icatibant] 30 mg SQ Q6HR PRN 09/28/22 09/28/22 - Allergies Allergies/Adverse Reactions: Allergies Allergy/AdvReac Type Severity Reaction Status Date / Time amoxicillin Allergy Intermediate Rash Verified 09/28/22 21:59 aspirin Allergy Itching Verified 09/28/22 21:59 soy Allergy Nausea Verified 09/28/22 21:59 Sulfa (Sulfonamide Allergy Nausea Verified 09/28/22 21:59 Antibiotics) - Social History Does the pt smoke?: No Smoking Status: Never smoker Does the pt drink ETOH?: Yes Does the pt have substance abuse?: No - Immunizations Immunizations are current?: Yes - POLST Patient has POLST: No PD ED PE NORMAL - Vitals Vital signs reviewed: Yes - General General: Alert and oriented X 3, No acute distress, Well developed/nourished - HEENT HEENT: Moist mucous membranes, Pharynx benign, Other (no logan/intraoral swelling including lips, tongue, posterior oropharynx) - Cardiac Cardiac: RRR, No murmur - Respiratory Respiratory: No respiratory distress, Clear bilaterally - Abdomen Abdomen: Normal bowel sounds, Soft, Non tender, Non distended, Other (RLQ flat erythema (at injection site of the Firazyr)) Results - Vitals Vitals: Oxygen O2 Source Room air PD Medical Decision Making - ED course Complexity details: considered differential, d/w patient ED course: I discussed this case with Dr. Sparks (education reporter [facility]); she says she spoke with patient earlier tonight and advised her to come to ED. Her recommendation is 4-6 hours of observation in ED (preferably 6 hours) and if patient worsens in any way and at any time during this period of observation, to transfer patient to another facility that would have any of the medications listed on the treatment plan. [facility] does not have any of these medications and regarding FFP, Dr. 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 I also discussed patient's understandable concern that if she is discharged, how she might obtain more of the medication to use at home PRN; Dr. Sparks says that patient should contact the office in the morning and they will work on getting another dose of this medication to the patient (currently they are working on insurance approval and not only are these mediations difficult to find stocked in many pharmacies, they are also prohibitively expensive from an [id number] perspective). Patient is observed in ED for a little over 6 hours and she reports mild but n oticeable improvement since initial evaluation when she first arrived to ED. She is given IV NS slowly over 3 hours due to her report of decreased PO intake during the day. Return precautions discussed. I advised her of the follow up recommendations resulting from my discussion with Dr. Sparks. Departure - Departure Disposition: 01 Home, Self Care Clinical Impression: Angioedema Condition: Good Instructions: ED Angioedema Comments: After little over 6 hours of observation in the emergency department, you were symptoms have not worsened and thus you are appropriate for discharge at this time. As we discussed, this period of observation was the result of the discussion I had with the test eng covering for Dr. Pimentel (Dr. Sparks). You should contact your test eng's office in the morning when the office opens to discuss recommendations regarding follow-up appointment as well as whether another dose of the Firazyr can be provided or prescribed. Discharge Date/Time: 09/29/22 02:21
[2022-09-28] MEDS ORDERED: SODIUM CHLORIDE 0.9% 1,000 ML IV STA (22:13)
[2022-09-29 02:21] VITALS: BP 111/74
== END 2022-09-29 02:21 | disposition home or self-care (01) ==
LOC: ED 19:45
DX: T78.3XXA Angioneurotic edema, initial encounter (principal)
CPT/HCPCS: 36415; 99284

== ENCOUNTER 2022-10-09 12:15 | Outpatient (CLI) | payer OTHER ==
[2022-10-09] MEDS ORDERED: iohexoL-300 100 ML VIAL ONE (12:44)
[2022-10-09] MEDS ORDERED: iohexoL-300 100 ML VIAL IVP ONE (14:46)
[2022-10-09] MEDS ORDERED: DIATRIZOATE MEGLU/DIATRIZO SOD 30 ML BOTTLE PO ONE (14:46)
--- NOTE | 2022-10-09 16:21 | CT Report ---
PROCEDURE: CHEST W INDICATIONS: ANGIOEDEMA, SPENOMEGALY CONTRAST:100ml Omnipaque 300 TECHNIQUE: After the administration of intravenous contrast, 1 mm axial images were acquired from the pulmonary apices through the posterior costophrenic angles. Axial 5 mm soft tissue kernel reconstructions were performed as well as 8 mm axial MIP and coronal and sagittal 5 mm reformations. For radiation dose reduction, the following was used: automated exposure control, adjustment of mA and/or kV according to patient size. COMPARISON: CT angiogram of the chest dated 07/29/2016 FINDINGS: Image quality: Excellent. Lungs and pleura: No acute air space opacities. A few juxta fissural nodules are present associated with the left major fissure in the upper and lower left lung. No suspicious pulmonary parenchymal les ions. No pleural effusions or pneumothorax. Central and peripheral airways are patent and normal in caliber. Mediastinum: Heart size is normal. No pericardial effusion. No mediastinal or hilar adenopathy by size criteria. Thoracic aorta and central pulmonary arteries are normal in size. Esophagus is melissa l in caliber. No hiatal hernia. Bones and chest wall: No suspicious bony lesions. No vertebral body compression fractures. No axil jaylen or supraclavicular adenopathy by size criteria. The thyroid is normal in size and there are no incidental findings.. Abdomen: Reported separately. IMPRESSION: 1. No suspicious pulmonary parenchymal process. 2. No adenopathy in the chest. Reviewed by: Lida Partida MD on 10/09/2022 4:20 PM PDT Approved by: Lida Partida MD on 10/09/2022 4:20 PM PDT Station ID: [id number]
--- NOTE | 2022-10-09 16:28 | CT Report ---
PROCEDURE: ABDOMEN/PELVIS W INDICATIONS: ANGIOEDEMA, SPENOMEGALY CONTRAST: 100ml Omnipaque 300 TECHNIQUE: After the administration of IV and oral contrast, 5 mm thick sections acquired from the diaphragms to the symphysis. 5 mm thick coronal and sagittal reformats were acquired. For radiation dose reducti on, the following was used: automated exposure control, adjustment of mA and/or kV according to ebony ent size. COMPARISON: None FINDINGS: Image quality: Excellent. ABDOMEN: Lung bases: Lung bases are clear. Heart size is normal. Solid organs: Liver is normal in size with a smooth margin. No masses. Gallbladder is normal. Bilia ry system is non dilated. Pancreas enhances normally. No adrenal nodules. Kidneys demonstrate norm al size and enhancement, without hydronephrosis. The spleen is enlarged measuring 14.9 x 7.3 x 12.7 cm for a volume of 718 cc. There are no discrete p arenchymal lesions. No perisplenic ascites. Attenuation is uniform. Peritoneum and bowel: Bowel loops demonstrate normal wall thickness and caliber. Normal appendix. De compressed stomach. No free fluid or air. Nodes and vessels: No retroperitoneal or mesenteric adenopathy by size criteria. Aorta and inferior vena cava are normal in size. Miscellaneous: No ventral hernias. PELVIS: Genitourinary: Bladder wall thickness is normal. Anteverted uterus appears normal. Ovaries were not well seen. Mildly prominent left adnexal vessels. Miscellaneous: No inguinal hernias or adenopathy. Bones: No suspicious bony lesions. No vertebral body compression fractures. IMPRESSION: 1. Moderate splenomegaly. 2. No adenopathy in the abdomen or pelvis. Reviewed by: Lida Partida MD on 10/09/2022 4:27 PM PDT Approved by: Lida Partida MD on 10/09/2022 4:27 PM PDT Station ID: [id number]
== END 2022-10-09 12:16 | disposition home or self-care (01) ==
LOC: DI 12:15
PROVIDERS: ATTEND Family Medicine
DX: R16.1 Splenomegaly, not elsewhere classified (principal); T78.3XXD Angioneurotic edema, subsequent encounter; D84.1 Defects in the complement system
CPT/HCPCS: 71260; 74177; Q9963; Q9967

== ENCOUNTER 2022-11-10 12:14 | Emergency (ER) | payer OTHER ==
--- NOTE | 2022-11-10 12:52 | ED Physician Documentation ---
History of Present Illness - Stated complaint Stated Complaint: DIZZY/NAUSEA/HIGH HR - Chief complaint Chief Complaint: Neuro - History obtained from History obtained from: Patient - Additonal information Additional information: 57-year-old woman with C1 esterase deficiency causing intermittent angioedema usually with manifestations of stomach cramps presents for same. She was started on orladeyo about 2 months ago which has decreased her attacks. This morning around 4 AM developed stomach cramps consistent with prior episodes of intestinal angioedema and did take a shot of icatibant which improved it for several hours but is getting worse again and she wonders if she should take another shot. 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, Other - Present Medications Home Medications: Ambulatory Orders Medication Instructions Recorded Confirmed Metoprolol Succinate [Toprol Xl] 12.5 mg PO DAILY 01/08/13 11/10/22 Lactobacillus Acidophilus 1.5 mg PO DAILY 08/07/19 11/10/22 [Probiotic Acidophilus] Lorazepam [Ativan] 1 mg PO DAILY PRN 08/07/19 11/10/22 [place]-3/Dha/Epa/Fish Oil [Fish Oil 1 each PO DAILY 08/07/19 11/10/22 1,000 mg Softgel] EPINEPHrine [Epinephrine] 0.3 mg IJ ONCE PRN #2 each 06/24/22 11/10/22 Apixaban [Eliquis] 5 mg PO BID 09/28/22 11/10/22 Icatibant Acetate [Icatibant] 30 mg SQ Q6HR PRN 09/28/22 11/10/22 Berotralstat Hydrochloride 150 mg PO DAILY 11/10/22 11/10/22 [Orladeyo] Cetirizine [ZyrTEC] 10 mg PO BID 11/10/22 11/10/22 - Allergies Allergies/Adverse Reactions: Allergies Allergy/AdvReac Type Severity Reaction Status Date / Time amoxicillin Allergy Intermediate Rash Verified 11/10/22 12:39 aspirin Allergy Itching Verified 11/10/22 12:39 lisinopril Allergy Edema Verified 11/10/22 18:28 soy Allergy Nausea Verified 11/10/22 12:39 Sulfa (Sulfonamide Allergy Nausea Verified 11/10/22 12:39 Antibiotics) - Social History Does the pt smoke?: No Smoking Status: Never smoker Does the pt drink ETOH?: Yes Does the pt have substance abuse?: No - Immunizations Immunizations are current?: Yes - POLST Patient has POLST: No PD ED PE NORMAL - Vitals Vital signs reviewed: Yes - General General: Alert and oriented X 3, No acute distress - HEENT HEENT: Other (Visualized portions of the oropharynx and speech are normal.) - Abdomen Abdomen: Normal bowel sounds, Soft, Non tender - Extremities Extremities: No edema - Neuro Neuro: Alert and oriented X 3, Normal speech - Psych Psych: Normal mood, Normal affect Results - Vitals Vitals: Vital Signs - 24 hr 11/10/22 11/10/22 11/10/22 12:39 13:35 14:44 Temperature 36.8 C Heart Rate 99 83 92 Respiratory 16 16 18 Rate Blood Pressure 137/85 H 123/72 140/79 H O2 Saturation 99 100 100 11/10/22 11/10/22 11/10/22 15:11 15:47 16:21 Temperature Heart Rate 90 104 H 95 Respiratory 13 20 18 Rate Blood Pressure 121/71 122/73 126/80 O2 Saturation 100 100 100 11/10/22 11/10/22 11/10/22 16:58 17:12 17:30 Temperature Heart Rate 88 95 84 Respiratory 18 18 16 Rate Blood Pressure 130/69 108/65 108/65 O2 Saturation 100 100 99 11/10/22 11/10/22 18:05 18:30 Temperature Heart Rate 85 83 Respiratory 18 17 Rate Blood Pressure 112/68 112/68 O2 Saturation 100 100 Oxygen O2 Source Room air - EKG (time done) 1438 EKG releavant findings:: EKG personally interpreted by author of this note. Relevant findings are: Rate: Rate (enter#) (80) Rhythm: NSR [place]: Normal Intervals: Normal TN QRS: Normal Ischemia: Normal ST segments PD Medical Decision Making - ED course ED course: I spoke with the investigator utility bill complaints on-call for her investigator utility bill complaints at [facility] [place] [facility]. She does recommend that the patient self administer a second dose of icatibant since it has been greater than 6 hours (pt did this at [facility] 1320) and either 6 hours of observation here versus transfer to the [place]. This was discussed with the patient and she preferred observation here as it does not feel like a worse episode than she has had. I was called into the room around 2:30 PM. She had been having some palpitations and lightheadedness. She had transient sinus tachycardia on the monitor which had resolved by the time I got into the room. An EKG is being done. Otherwise she has no worsening of her other symptoms and still no sensation of oropharyngeal angioedema. She continued to be observed for a little over a total of 6 hours with improvement in her abdominal pain and never developed any sensation of swelling in the oropharynx. Departure - Departure Disposition: 01 Home, Self Care Clinical Impression: Angioedema Qualifiers: Encounter type: initial encounter Qualified Code(s): T78.3XXA - Angioneurotic edema, initial encounter Condition: Good Record reviewed to determine appropriate education?: Yes Instructions: ED Angioedema Comments: Call your doctor to arrange a follow-up appointment, make the next available appointment. In the interim, return anytime if worse or if new symptoms develop. Discharge Date/Time: 11/10/22 18:31
--- OUTSIDE RECORDS SUMMARY | 2022-11-10 13:17 | EXTERNAL MEDICAL SUMMARY RPT | Continuity of Care Document ---
:1965 Author Organization [facility] Address [address] [place] [address] Phone Care Team Providers Name Role Phone Unavailable Unavailable Unavailable Dale Rodriguez Md Unavailable Unavailable Allergies No information. Encounters No information. Functional Status No information. Immunizations No information. Medications date description facility 2022-08-28 00:00 aspirin [facility] 2022-08-29 00:00 cetirizine [facility] 2022-08-28 00:00 cyclobenzaprine [facility] [place] [facility] 2022-08-29 00:00 cyclobenzaprine [facility] 2022-08-28 00:00 cyclobenzaprine [facility] 2022-08-29 00:00 cyclobenzaprine [facility] [place] [facility] 2022-08-28 00:00 diclofenac sodium [facility] [place] [facility] 2022-08-29 00:00 [facility]ac [facility] 2022-08-28 [facility]of[facility]ac [facility] 2022-08-29 00:00 dic[facility]ofenac sodium [facility] 2022-08-28 00:00 metoprolol succinate [facility] [place] 2022-08-29 00:00 metoprolol succinate [facility] [place] Problems date description facility 2022-08-28 00:00 Edema of [facility] 2022-08-28 00:00 Edema [facility] 2022-08-28 00:00 Localized edema [facility] Procedures date description facility 2022-08-28 00:00 Visit Code Hold [facility] Results/Labs No information. Social History date description facility 2022-08-28 00:00 Never smoker [facility] [place] [facility] Vital Signs date measurement value units 2022-08-28 00:00 BMI 24.98 kg/m2 2022-08-28 00:00 BP_diastolic 90 mmHg 2022-08-28 00:00 BP_systolic 140 mmHg 2022-08-28 00:00 heart_rate 100 /min 2022-08-28 00:00 height_metric 162.56 cm 2022-08-28 00:00 height_standard 64 in 2022-08-28 00:00 respiration_rate 16 /min 2022-08-28 00:00 temperature_metric 36.72 C 2022-08-28 00:00 temperature_standard 98.1 F 2022-08-28 00:00 weight_metric 65.77 kg 2022-08-28 00:00 weight_standard 145 lb
[2022-11-10] MEDS ORDERED: SODIUM CHLORIDE 0.9% 1,000 ML IV STA (17:15)
[2022-11-10 18:06] VITALS: BP 112/68
== END 2022-11-10 18:31 | disposition home or self-care (01) ==
LOC: ED 12:14
DX: T78.3XXA Angioneurotic edema, initial encounter (principal); R00.0 Tachycardia, unspecified; R00.2 Palpitations; R42 Dizziness and giddiness
CPT/HCPCS: 93005; 96360; 99284

== ENCOUNTER 2023-07-03 15:09 | Outpatient (CLI) | payer OTHER ==
[2023-07-03 15:53] LABS: TROPONIN I HIGH SENSITIVITY 2.3 ng/L (2.3-14.8)
== END 2023-07-03 15:10 | disposition home or self-care (01) ==
LOC: LAB 15:09
PROVIDERS: ATTEND Internal Medicine Medical Oncology
DX: C88.4 Extranodal marginal zone B-cell lymphoma of mucosa-associated lymphoid tissue [MALT-lymphoma] (principal); R00.0 Tachycardia, unspecified
CPT/HCPCS: 36415; 81599; 82550; 84484; 93005

== ENCOUNTER 2023-07-19 14:30 | Emergency (ER) | payer OTHER ==
[2023-07-19 15:44] LABS: BASOPHILS # (AUTO) 0.1 10^3/uL (0.0-0.1); BASOPHILS % (AUTO) 0.9 %; EOSINOPHILS # (AUTO) 0.2 10^3/uL (0.0-0.7); EOSINOPHILS % (AUTO) 2.9 %; HCT - HEMATOCRIT 39.9 % (37.0-47.0); HGB - HEMOGLOBIN 13.2 g/dL (12.0-16.0); LYMPHOCYTES # (AUTO) 1.1 10^3/uL (1.5-3.5); LYMPHOCYTES % (AUTO) 20.9 %; MEAN CORPUSCULAR HEMOGLOBIN 29.1 pg (27.0-31.0); MEAN CORPUSCULAR HGB CONC 33.1 g/dL (32.0-36.0); MEAN CORPUSCULAR VOLUME 88.1 fL (81.0-99.0); MEAN PLATELET VOLUME 8.7 fL (7.9-10.8); MONOCYTES # (AUTO) 0.3 10^3/uL (0.0-1.0); MONOCYTES % (AUTO) 5.9 %; NEUTROPHILS # (AUTO) 3.8 10^3/uL (1.5-6.6); NEUTROPHILS % (AUTO) 69.2 %; PLT - PLATELET COUNT 209 10^3/uL (130-450); RED BLOOD COUNT 4.53 10^6/uL (4.20-5.40); RED CELL DISTRIBUTION WIDTH 13.8 % (12.0-15.0); WHITE BLOOD COUNT 5.5 x10^3/uL (4.8-10.8)
[2023-07-19 15:59] LABS: ALBUMIN 4.5 g/dL (3.2-5.5); BILIRUBIN,TOTAL 0.3 mg/dL (0.2-1.0); CALCIUM 9.4 mg/dL (8.5-10.3); CREATININE 0.7 mg/dL (0.6-1.3); MAGNESIUM 1.8 mg/dL (1.7-2.3); POTASSIUM 3.4 mmol/L (3.5-4.5); TOTAL PROTEIN 6.8 g/dL (6.4-8.9)
[2023-07-19] MEDS ORDERED: ONDANSETRON 4 MG/2 ML VIAL IVP STA (16:05)
[2023-07-19] MEDS ORDERED: SODIUM CHLORIDE 0.9% 1,000 ML IV STA (16:05)
[2023-07-19 16:12] LABS: THYROID STIMULATING HORMONE 1.63 uIU/mL (0.34-5.60)
--- NOTE | 2023-07-19 16:13 | ED Physician Documentation ---
History of Present Illness - Stated complaint Stated Complaint: HEART RACING,NAUSEA - Chief complaint Chief Complaint: Cardiac - History obtained from History obtained from: Patient - Additonal information Additional information: Patient is a 58-year-old female with a history of acquired angioedema and splenic lymphoma presenting for evaluation of feeling palpitations around 130 as she was sitting down at a desk. She reports feeling like her heart was racing and felt some nausea with it. Denies chest pain or shortness of air. States that since yesterday she has been kind of feeling some nausea with diarrhea and generally unwell. No fever, cough, difficulty breathing, abdominal pain. No throat swelling or symptoms of angioedema. Patient is on chemotherapy medications and is receiving Rituximab and last had a dose on Sunday. Review of Systems Constitutional: denies: Fever Cardiac: reports: Palpitations. 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, Other - Present Medications Home Medications: Ambulatory Orders Medication Instructions Recorded Confirmed Metoprolol Succinate [Toprol Xl] 12.5 mg PO DAILY 01/08/13 02/18/23 Lactobacillus Acidophilus 1.5 mg PO DAILY 08/07/19 02/18/23 [Probiotic Acidophilus] Lorazepam [Ativan] 1 mg PO DAILY PRN 08/07/19 02/18/23 [place]-3/Dha/Epa/Fish Oil [Fish Oil 1 each PO DAILY 08/07/19 02/18/23 1,000 mg Softgel] EPINEPHrine [Epinephrine] 0.3 mg IJ ONCE PRN #2 each 06/24/22 02/18/23 Apixaban [Eliquis] 5 mg PO BID 09/28/22 02/18/23 Icatibant Acetate [Icatibant] 30 mg SQ Q6HR PRN 09/28/22 02/18/23 Berotralstat Hydrochloride 150 mg PO DAILY 11/10/22 02/18/23 [Orladeyo] Cetirizine [ZyrTEC] 10 mg PO BID 11/10/22 02/18/23 - Allergies Allergies/Adverse Reactions: Allergies Allergy/AdvReac Type Severity Reaction Status Date / Time amoxicillin Allergy Intermediate Rash Verified 07/19/23 14:37 aspirin Allergy Itching Verified 07/19/23 14:37 lisinopril Allergy Edema Verified 07/19/23 14:37 soy Allergy Nausea Verified 07/19/23 14:37 Sulfa (Sulfonamide Allergy Nausea Verified 07/19/23 14:37 Antibiotics) - Social History Does the pt smoke?: No Smoking Status: Never smoker Does the pt drink ETOH?: Yes Does the pt have substance abuse?: No - Immunizations Immunizations are current?: Yes - POLST Patient has POLST: No PD ED PE NORMAL - General General: Alert and oriented X 3, No acute distress, Well developed/nourished - HEENT HEENT: Atraumatic, Moist mucous membranes - Neck Neck: Supple, no meningeal sign - Cardiac Cardiac: RRR, No murmur, Strong equal pulses - Respiratory Respiratory: No respiratory distress - Abdomen Abdomen: Normal bowel sounds, Soft, Non tender, Non distended - Derm Derm: Warm and dry - Neuro Neuro: Normal speech Results - Vitals Vitals: Vital Signs - 24 hr 07/19/23 07/19/23 14:37 16:43 Temperature 36.6 C Heart Rate 80 94 Respiratory 16 18 Rate Blood Pressure 142/70 H 150/70 H O2 Saturation 100 98 Oxygen O2 Source Room air - EKG (time done) 1436 EKG releavant findings:: EKG personally interpreted by author of this note. Relevant findings are: Rate 80, normal sinus rhythm, no STEMI, no ST depressions, QTc 469 - Labs Labs: Laboratory Tests 07/19/23 07/19/23 07/19/23 15:36 15:36 15:36 WBC 5.5 RBC 4.53 Hgb 13.2 Hct 39.9 MCV 88.1 MCH 29.1 MCHC 33.1 RDW 13.8 Plt Count 209 MPV 8.7 Neut # (Auto) 3.8 Lymph # (Auto) 1.1 L [place] # (Auto) 0.3 Eos # (Auto) 0.2 Baso # (Auto) 0.1 Absolute Nucleated RBC 0.00 Nucleated RBC % 0.0 Sodium 141 Potassium 3.4 L Chloride 105 Carbon Dioxide 31 Anion Gap 5.0 L BUN 12 Creatinine 0.7 Estimated GFR (MDRD) 86 L Glucose 96 Calcium 9.4 Magnesium 1.8 Total Bilirubin 0.3 AST 14 ALT 10 Alkaline Phosphatase 49 Troponin I High Sens 2.3 Total Protein 6.8 Albumin 4.5 Globulin 2.3 Albumin/Globulin Ratio 2.0 Lipase 45 TSH 1.63 PD Medical Decision Making - ED course Complexity details: reviewed results, re-evaluated patient, d/w patient ED course: Patient is a 58-year-old female Presenting for evaluation of palpitations. EKG demonstrates normal sinus rhythm. CBC, chemistries, TSH, troponin were obtained and reviewed and without any significant findings. Potassium was 3.4 and was given oral replacement. Chest x-ray is negative for consolidation or effusion. The patient is feeling better here after IV fluids and Zofran. However she does report a history of anxiety and reports feeling a little anxious and is requesting a dose of Ativan which she does take at home. No events on desk monitor here. Vital signs have been stable and I do not believe her symptoms suggest a pulmonary embolism. Patient has close follow-up with oncology already scheduled for tomorrow. She feels comfortable plan for discharge and is counseled on concerning symptoms to return for. Departure - Departure Disposition: 01 Home, Self Care Clinical Impression: Palpitations Condition: Stable Instructions: ED Palpitations Comments: Your evaluated for palpitations. Your EKG and your testing here including CBC, chemistries, troponin, TSH are all relatively normal. Potassium was 3.4 and you were given a oral replacement. Your EKG shows a regular sinus rhythm. Your chest x-ray is clear. We have not seen any abnormal events on the desk monitor here. Please have close follow-up with your oncologist and primary care provider. Return to the ER with any worsening symptoms. Forms: PCP List
[2023-07-19] MEDS ORDERED: POTASSIUM BICARB 25 MEQ TABLET PO ONE (16:31)
[2023-07-19 16:59] VITALS: O2SAT 98
[2023-07-19] MEDS ORDERED: LORazepam 0.5 MG TABLET PO STA (17:19)
[2023-07-19 17:54] VITALS: BP 133/80
--- NOTE | 2023-07-19 18:08 | XRAY Report ---
PROCEDURE: Chest 1 View X-Ray INDICATIONS: palpitations TECHNIQUE: One view of the chest was acquired. COMPARISON: 01/08/2013. FINDINGS: Surgical changes and devices: None. Lungs and pleura: No pleural effusions or pneumothorax. Lungs are clear. Mediastinum: Mediastinal contours appear normal. Heart size is normal. Bones and chest wall: No suspicious bony lesions. Overlying soft tissues appear unremarkable. IMPRESSION: No acute cardiopulmonary process. No focal consolidation. Reviewed by: Odin Cuevas MD on 07/19/2023 6:07 PM PST Approved by: Odin Cuevas MD on 07/19/2023 6:07 PM [facility] Station ID: [id number]
== END 2023-07-19 17:46 | disposition home or self-care (01) ==
LOC: ED 14:30
DX: R00.2 Palpitations (principal); I10 Essential (primary) hypertension
CPT/HCPCS: 36415; 71045; 80053; 83690; 83735; 84443; 84484; 85025; 93005; 96361; 96374; 99284; A9270

== ENCOUNTER 2023-09-15 08:00 | Outpatient (CLI) | payer OTHER ==
[2023-09-15 20:45] LABS: BACTERIAL VAGINOSIS DNA NEGATIVE (NEGATIVE); CANDIDA GLABRATA DNA NEGATIVE (NEGATIVE); CANDIDA GROUP DNA NEGATIVE (NEGATIVE); CANDIDA KRUSEI DNA NEGATIVE (NEGATIVE); TRICHOMONAS VAGINALIS DNA NEGATIVE (NEGATIVE)
== END 2023-09-15 23:59 | disposition home or self-care (01) ==
LOC: LAB.S 08:00
PROVIDERS: ATTEND Physician Assistant Medical
DX: R82.90 Unspecified abnormal findings in urine (principal); R30.0 Dysuria; N76.0 Acute vaginitis
CPT/HCPCS: 81514; 87086

== ENCOUNTER 2023-09-18 12:58 | Outpatient (CLI) | payer OTHER ==
[2023-09-19 07:11] LABS: ADENOVIRUS F 40/41 Not Detected (Not Detected); ASTROVIRUS Not Detected (Not Detected); C DIFFICILE TOXIN A/B Not Detected (Not Detected); CAMPYLOBACTER Not Detected (Not Detected); CRYPTOSPORIDIUM Not Detected (Not Detected); CYCLOSPORA CAYETANENSIS Not Detected (Not Detected); ENTAMOEBA HISTOLYTICA Not Detected (Not Detected); ENTEROAGGREGATIVE E COLI Not Detected (Not Detected); ENTEROPATHOGENIC E COLI Not Detected (Not Detected); ENTEROTOXIGENIC E COLI Not Detected (Not Detected); GIARDIA LAMBLIA Not Detected (Not Detected); NOROVIRUS GI/GII Detected (Not Detected); PLESIOMONAS SHIGELLOIDES Not Detected (Not Detected); ROTAVIRUS A Not Detected (Not Detected); SALMONELLA Not Detected (Not Detected); SAPOVIRUS Not Detected (Not Detected); SHIGA-TOXIN-PRODUCING E COLI Not Detected (Not Detected); SHIGELLA/ENTEROINVASIVE E COLI Not Detected (Not Detected); VIBRIO Not Detected (Not Detected); VIBRIO CHOLERAE Not Detected (Not Detected); YERSINIA ENTEROCOLITICA Not Detected (Not Detected)
== END 2023-09-18 12:59 | disposition home or self-care (01) ==
LOC: LAB.R 12:58
DX: C83.07 Small cell B-cell lymphoma, spleen (principal)
CPT/HCPCS: 87507

== ENCOUNTER 2023-11-06 15:56 | Outpatient (CLI) | payer OTHER ==
--- NOTE | 2023-11-06 19:43 | XRAY Report ---
PROCEDURE: Foot 3+V RT (Weight Bearing) INDICATIONS: RIGHT FOOT PAIN TECHNIQUE: 3 views of the foot were acquired. COMPARISON: None. FINDINGS: Bones: No fractures or dislocations. No suspicious bony lesions. Small posterior calcaneal spur Soft tissues: No tibiotalar joint effusion. Achilles tendon appears normal. IMPRESSION: Small posterior calcaneal spur Reviewed by: Doni Reyna MD on 11/06/2023 6:42 PM [facility] Approved by: Doni Reyna MD on 11/06/2023 6:42 PM [facility] Station ID: [id number]
== END 2023-11-06 15:57 | disposition home or self-care (01) ==
LOC: DI 15:56
PROVIDERS: ATTEND Podiatrist
DX: M77.31 Calcaneal spur, right foot (principal); M79.671 Pain in right foot

== ENCOUNTER 2023-11-07 03:33 | Emergency (ER) | payer OTHER ==
--- NOTE | 2023-11-07 03:53 | ED Physician Documentation ---
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, Other - Present Medications Home Medications: Ambulatory Orders Medication Instructions Recorded Confirmed Metoprolol Succinate [Toprol Xl] 12.5 mg PO DAILY 01/08/13 02/18/23 Lactobacillus Acidophilus 1.5 mg PO DAILY 08/07/19 02/18/23 [Probiotic Acidophilus] Lorazepam [Ativan] 1 mg PO DAILY PRN 08/07/19 02/18/23 [place]-3/Dha/Epa/Fish Oil [Fish Oil 1 each PO DAILY 08/07/19 02/18/23 1,000 mg Softgel] EPINEPHrine [Epinephrine] 0.3 mg IJ ONCE PRN #2 each 06/24/22 02/18/23 Apixaban [Eliquis] 5 mg PO BID 09/28/22 02/18/23 Icatibant Acetate [Icatibant] 30 mg SQ Q6HR PRN 09/28/22 02/18/23 Berotralstat Hydrochloride 150 mg PO DAILY 11/10/22 02/18/23 [Orladeyo] Cetirizine [ZyrTEC] 10 mg PO BID 11/10/22 02/18/23 - Allergies Allergies/Adverse Reactions: Allergies Allergy/AdvReac Type Severity Reaction Status Date / Time amoxicillin Allergy Intermediate Rash Verified 11/07/23 03:41 aspirin Allergy Itching Verified 11/07/23 03:41 lisinopril Allergy Edema Verified 11/07/23 03:41 soy Allergy Nausea Verified 11/07/23 03:41 Sulfa (Sulfonamide Allergy Nausea Verified 11/07/23 03:41 Antibiotics) - Social History Does the pt smoke?: No Smoking Status: Never smoker Does the pt drink ETOH?: Yes Does the pt have substance abuse?: No - Immunizations Immunizations are current?: Yes - POLST Patient has POLST: No Results - Vitals Vitals: Vital Signs - 24 hr 11/07/23 11/07/23 03:38 03:41 Temperature 36.5 C Heart Rate 78 80 Respiratory 18 18 Rate Blood Pressure 129/89 H O2 Saturation 99 98 Oxygen O2 Source Room air Departure - Departure
--- NOTE | 2023-11-07 05:08 | ED Physician Documentation ---
History of Present Illness - Stated complaint Stated Complaint: SWOLLEN THROAT - Chief complaint Chief Complaint: Heent - Additonal information Additional information: Patient is a 58-year-old femaleWith past medical's significant for acquired angioedema, as well asSplenic lymphoma presenting with throat swelling. Reports has had the sensation of deep neck and throat swelling x 5 hours. Has rescue medication, incantanib without relief. which she gave herself a few hours ago. Has been managing her own secretions well. Denies any hoarseness or stridulous nests to her voice. Denies any fever, chills. 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, Other - Present Medications Home Medications: Ambulatory Orders Medication Instructions Recorded Confirmed Metoprolol Succinate [Toprol Xl] 12.5 mg PO DAILY 01/08/13 02/18/23 Lactobacillus Acidophilus 1.5 mg PO DAILY 08/07/19 02/18/23 [Probiotic Acidophilus] Lorazepam [Ativan] 1 mg PO DAILY PRN 08/07/19 02/18/23 [place]-3/Dha/Epa/Fish Oil [Fish Oil 1 each PO DAILY 08/07/19 02/18/23 1,000 mg Softgel] EPINEPHrine [Epinephrine] 0.3 mg IJ ONCE PRN #2 each 06/24/22 02/18/23 Apixaban [Eliquis] 5 mg PO BID 09/28/22 02/18/23 Icatibant Acetate [Icatibant] 30 mg SQ Q6HR PRN 09/28/22 02/18/23 Berotralstat Hydrochloride 150 mg PO DAILY 11/10/22 02/18/23 [Orladeyo] Cetirizine [ZyrTEC] 10 mg PO BID 11/10/22 02/18/23 - Allergies Allergies/Adverse Reactions: Allergies Allergy/AdvReac Type Severity Reaction Status Date / Time amoxicillin Allergy Intermediate Rash Verified 11/07/23 03:41 aspirin Allergy Itching Verified 11/07/23 03:41 lisinopril Allergy Edema Verified 11/07/23 03:41 soy Allergy Nausea Verified 11/07/23 03:41 Sulfa (Sulfonamide Allergy Nausea Verified 11/07/23 03:41 Antibiotics) - Social History Does the pt smoke?: No Smoking Status: Never smoker Does the pt drink ETOH?: Yes Does the pt have substance abuse?: No - Immunizations Immunizations are current?: Yes - POLST Patient has POLST: No PD ED PE NORMAL - General General: Alert and oriented X 3, No acute distress, Well developed/nourished - HEENT HEENT: Atraumatic, PERRL, EOMI, Ears normal, Moist mucous membranes, Pharynx benign, Dentition benign, Other - Neck Neck: Supple, no meningeal sign, No bony TTP, No adenopathy, Thyroid normal, No JVD, No bruit, C-Spine cleared by NEXUS criteria, Other - Cardiac Cardiac: RRR, No murmur, No gallop, Strong equal pulses - Respiratory Respiratory: No respiratory distress, Clear bilaterally, Other - Abdomen Abdomen: Normal bowel sounds, Soft, Non tender, No organomegaly - Female Female : Deferred - Rectal Rectal: Deferred - Back Back: No CVA TTP, No spinal TTP - Derm Derm: Normal color - Extremities Extremities: No deformity - Neuro Neuro: Alert and oriented X 3, 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, No motor deficit, No sensory deficit, Normal speech Results - Vitals Vitals: Vital Signs - 24 hr 11/07/23 11/07/23 11/07/23 03:38 03:41 04:10 Temperature 36.5 C Heart Rate 78 80 81 Respiratory 18 18 18 Rate Blood Pressure 129/89 H 125/79 O2 Saturation 99 98 99 11/07/23 11/07/23 11/07/23 04:30 04:58 05:30 Temperature Heart Rate 80 84 89 Respiratory 18 18 20 Rate Blood Pressure 126/81 H 127/78 127/74 O2 Saturation 100 99 100 11/07/23 06:00 Temperature Heart Rate 88 Respiratory 18 Rate Blood Pressure 118/73 O2 Saturation 98 Oxygen O2 Source Room air - Labs Labs: Laboratory Tests 11/07/23 04:15 Blood Type A POSITIVE PD Medical Decision Making - ED course Complexity details: reviewed old records, reviewed results, re-evaluated patient, considered differential, d/w patient, d/w family, d/w 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 Reports feelings of neck swelling x 4 hours prior to arrival. Gave herself a rescue dose of her prescribed C1 inhibitor. On arrival to the emergency department she is afebrile, hemodynamically stable. She has vesicular breath sounds with no appreciable soft tissue swelling in the posterior oropharynx, submental area or to the soft tissue of the neck. Initially upon arrival she requested consultation with her allergy service in [facility]. She refused all testing and treatment until this occurred. She did have documentation about plans including administration of different calcarine and inhibitors. None of these medications are readily available at this facility. She did initially verbally consent for the administration of fresh frozen plasma while we awaited consultation with her salon customer experience specialist. She initially declined any steroid treatment or racemic epinephrine. Discussed with Dr. Escoto, [place] [facility]. Dr. Escoto additionally had a long and detailed discussion with the patient. Reevaluation patient reported feeling essentially the same. Plan was made for the administration of fresh frozen plasma however she decided that she did not wish this and instead was only interested in trying a treatment of racemic epinephrine and plan was made in consultation with her salon customer experience specialist for administration of a second dose of her incantanib. This was self administered at 0515. Patient ultimately declined to consent for FFP. Pt monitored for An additional hour.Tolerated racemic epinephrine treatment without issue. At which time she reported feeling significantly better.Requested discharge from the emergency department. Was encouraged to keep her follow-up appointment with her salon customer experience specialist later this afternoon or return to the emergency department immediately for new or worsening symptoms. Departure - Departure Disposition: 01 Home, Self Care Clinical Impression: Angioedema Instructions: ED Angioedema Comments: Please keep your follow-up with your salon customer experience specialist. If it anytime you feel your symptoms are returning please either call 911 or return to the emergency department immediately. Forms: PCP List Discharge Date/Time: 11/07/23 06:24
[2023-11-07] MEDS: RACEPINEPHRINE 2.25% NEB INH STA (05:30)
[2023-11-07] MEDS: SODIUM CHLORIDE FOR INHALATION 5 ML NEB INH STA (05:30)
[2023-11-07 06:10] VITALS: BP 118/73; O2SAT 98
== END 2023-11-07 06:24 | disposition home or self-care (01) ==
LOC: ED 03:33
DX: T78.3XXA Angioneurotic edema, initial encounter (principal); I10 Essential (primary) hypertension
CPT/HCPCS: 36415; 86900; 86901; 94640; 94664; 99283; 99284

== ENCOUNTER 2024-04-20 13:43 | Emergency (ER) | payer OTHER ==
--- NOTE | 2024-04-20 14:13 | ED Physician Documentation ---
PD HPI DYSPNEA - Stated complaint Stated Complaint: HIGH BP, GASCA, NAUSEA - Chief complaint Chief Complaint: Cardiac - Additional information Additional information: 59-year-old female with history of factor V, Recently underwent chemo treatment for lymphoma, hypertension, heart palpitations presents emergency department for 1 week of generalized malaise and unwell feeling. Patient says it started out with a mild headache about a week ago but over time has progressed to increased nausea malingering headache that will not go away despite Tylenol ibuprofen chills no fevers no vomiting. Patient says that she has gotten headaches in the past but she has never had a headache that does not go away. She took her blood pressure today and it was 150/100 which is what presents her to the emergency department today. She is very concerned that her blood pressure with her headache. No chest pain or shortness of breath. 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, Other - Present Medications Home Medications: Ambulatory Orders Medication Instructions Recorded Confirmed Metoprolol Succinate [Toprol Xl] 12.5 mg PO DAILY 01/08/13 02/18/23 Lactobacillus Acidophilus 1.5 mg PO DAILY 08/07/19 02/18/23 [Probiotic Acidophilus] Lorazepam [Ativan] 1 mg PO DAILY PRN 08/07/19 02/18/23 [place]-3/Dha/Epa/Fish Oil [Fish Oil 1 each PO DAILY 08/07/19 02/18/23 1,000 mg Softgel] EPINEPHrine [Epinephrine] 0.3 mg IJ ONCE PRN #2 each 06/24/22 02/18/23 Apixaban [Eliquis] 5 mg PO BID 09/28/22 02/18/23 Icatibant Acetate [Icatibant] 30 mg SQ Q6HR PRN 09/28/22 02/18/23 Berotralstat Hydrochloride 150 mg PO DAILY 11/10/22 02/18/23 [Orladeyo] Cetirizine [ZyrTEC] 10 mg PO BID 11/10/22 02/18/23 - Allergies Allergies/Adverse Reactions: Allergies Allergy/AdvReac Type Severity Reaction Status Date / Time amoxicillin Allergy Intermediate Rash Verified 11/07/23 03:41 OSCAR Inhibitors Allergy Edema Verified 04/20/24 13:58 aspirin Allergy Itching Verified 11/07/23 03:41 lisinopril Allergy Edema Verified 11/07/23 03:41 soy Allergy Nausea Verified 11/07/23 03:41 Sulfa (Sulfonamide Allergy Nausea Verified 11/07/23 03:41 Antibiotics) - Social History Does the pt smoke?: No Smoking Status: Never smoker Does the pt drink ETOH?: Yes Does the pt have substance abuse?: No - Immunizations Immunizations are current?: Yes - POLST Patient has POLST: No PD ED PE NORMAL - Vitals Vital signs reviewed: Yes - General General: Alert and oriented X 3, No acute distress, Well developed/nourished - HEENT HEENT: Atraumatic, PERRL, EOMI - Neck Neck: Supple, no meningeal sign - Cardiac Cardiac: RRR - Respiratory Respiratory: No respiratory distress - Abdomen Abdomen: Normal bowel sounds, Soft, Non tender, Non distended, No organomegaly - Neuro Neuro: Alert and oriented X 3, 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 Relevant findings are: Rate: Rate (enter#) (80) Rhythm: NSR [place]: RAD Intervals: Normal VA QRS: Normal Ischemia: Normal ST segments Computer interpretation: Agree with computer - Labs Labs: Laboratory Tests 04/20/24 04/20/24 04/20/24 14:25 14:25 14:25 WBC 6.1 RBC 4.32 Hgb 12.8 Hct 38.0 MCV 88.0 MCH 29.6 MCHC 33.7 RDW 12.4 Plt Count 191 MPV 9.1 Neut # (Auto) 4.7 Lymph # (Auto) 0.7 L [place] # (Auto) 0.4 Eos # (Auto) 0.1 Baso # (Auto) 0.0 Absolute Nucleated RBC 0.00 Nucleated RBC % 0.0 Sodium 138 Potassium 3.4 L Chloride 103 Carbon Dioxide 26 Anion Gap 9.0 BUN 10 Creatinine 0.7 Estimated GFR (MDRD) 86 L Glucose 100 Calcium 9.6 Magnesium 1.8 Total Bilirubin 0.7 AST 16 ALT 12 Alkaline Phosphatase 48 Total Protein 6.6 Albumin 4.6 Globulin 2.0 L Albumin/Globulin Ratio 2.3 H Lipase 28 Nasal Adenovirus (PCR) NOT DETECTED Nasal B. parapertussis DNA (PCR) NOT DETECTED Nasal Coronavir 229E PCR NOT DETECTED Nasal Coronavir HKU1 PCR NOT DETECTED Nasal Coronavir NL63 PCR NOT DETECTED Nasal Coronavir OC43 PCR NOT DETECTED Nasal Enterovir/Rhinovir PCR NOT DETECTED Nasal Influenza B PCR NOT DETECTED Nasal Influenza A PCR NOT DETECTED Nasal Parainfluen 1 PCR NOT DETECTED Nasal Parainfluen 2 PCR NOT DETECTED Nasal Parainfluen 3 PCR NOT DETECTED Nasal Parainfluen 4 PCR NOT DETECTED Nasal RSV (PCR) NOT DETECTED Nasal B.pertussis DNA PCR NOT DETECTED Nasal C.pneumoniae (PCR) NOT DETECTED [place] Human Metapneumo PCR NOT DETECTED Nasal M.pneumoniae (PCR) NOT DETECTED Nasal SARS-CoV-2 (PCR) NOT DETECTED - Rads (name of study) head ct w/o Relevant Findings:: Final report received, EMP independent interpretation of test, Other PD Medical Decision Making - ED course ED course: 59-year-old female presents emergency department for headache nausea and hypertension. Labs are complete for further evaluation she has no leukocytosis very minimally suppressed potassium 3.4 and respiratory swab was found to be negative. Head CT was complete for further evaluations patient says that she is been having ongoing headaches now for about a week and given her factor V noted and she is not on any anticoagulants she is concerned about possible blood clot in her head. Head CT was unremarkable no intracranial abnormalities or findings. She was given 1 L of IV fluids as well as Toradol and Compazine and reported significant improvement in her migraine/headache symptoms. Her nausea has fully resolved and she is feeling significantly better. Vitals remained hemodynamically stable here and not concerned about possible sepsis she has been afebrile and does not show any other signs of sepsis. She was told to follow- up with her primary care provider as well as her oncologist about today's ER visit given improvement of symptoms I believe the patient is safe for discharge return precautions given all questions have been answered. Departure - Departure Disposition: 01 Home, Self Care Clinical Impression: Dehydration Migraine Qualifiers: Migraine type: unspecified Status migrainosus presence: without status migrainosus Intractability: not intractable Qualified Code(s): G43.909 - Migraine, unspecified, not intractable, without status migrainosus Instructions: ED Headache Migraine Comments: Thank you for trusting us with your care, we have evaluated you for your ongoing migraine and generalized unwell feeling. We have completed labs as well as a head CT and I am not seeing any acute abnormalities or findings. Your migraine improved after some IV Toradol and IV Compazine and 1 L of IV fluids. Please follow-up with your primary care provider as well as your oncologist about today's ER visit please come back if you are starting to notice any fevers or chills or any worsening symptoms. Forms: PCP List Discharge Date/Time: 04/20/24 15:45
[2024-04-20 14:31] LABS: BASOPHILS % (AUTO) 0.7 %; EOSINOPHILS # (AUTO) 0.1 10^3/uL (0.0-0.7); EOSINOPHILS % (AUTO) 2.1 %; HGB - HEMOGLOBIN 12.8 g/dL (12.0-16.0); LYMPHOCYTES # (AUTO) 0.7 10^3/uL (1.5-3.5); LYMPHOCYTES % (AUTO) 11.7 %; MEAN CORPUSCULAR HEMOGLOBIN 29.6 pg (27.0-31.0); MEAN CORPUSCULAR HGB CONC 33.7 g/dL (32.0-36.0); MEAN PLATELET VOLUME 9.1 fL (7.9-10.8); MONOCYTES # (AUTO) 0.4 10^3/uL (0.0-1.0); MONOCYTES % (AUTO) 7.1 %; NEUTROPHILS # (AUTO) 4.7 10^3/uL (1.5-6.6); NEUTROPHILS % (AUTO) 78.2 %; PLT - PLATELET COUNT 191 10^3/uL (130-450); RED BLOOD COUNT 4.32 10^6/uL (4.20-5.40); RED CELL DISTRIBUTION WIDTH 12.4 % (12.0-15.0); WHITE BLOOD COUNT 6.1 x10^3/uL (4.8-10.8)
[2024-04-20] MEDS: PROCHLORPERAZINE 10 MG/2 ML VIAL IVP STA (14:38)
[2024-04-20] MEDS: SODIUM CHLORIDE 0.9% 1,000 ML IV ONE (14:38)
[2024-04-20] MEDS: KETOROLAC 30 MG/ML VIAL IVP STA (14:41)
[2024-04-20 14:50] LABS: ALBUMIN 4.6 g/dL (3.2-5.5); ALBUMIN/GLOBULIN RATIO 2.3 (1.0-2.2); BILIRUBIN,TOTAL 0.7 mg/dL (0.2-1.0); CALCIUM 9.6 mg/dL (8.5-10.3); CREATININE 0.7 mg/dL (0.6-1.3); MAGNESIUM 1.8 mg/dL (1.7-2.3); POTASSIUM 3.4 mmol/L (3.5-4.5); TOTAL PROTEIN 6.6 g/dL (6.4-8.9)
--- NOTE | 2024-04-20 14:58 | CT Report ---
PROCEDURE: Head WO INDICATIONS: headache, Factor V TECHNIQUE: Noncontrast 4.5 mm thick angled axial sections acquired from the foramen magnum to the vertex. For r adiation dose reduction, the following was used: automated exposure control, adjustment of mA and/or kV according to patient size. COMPARISON: None. FINDINGS: Image quality: Excellent. CSF spaces: Basal cisterns are patent. No extra-axial fluid collections. Ventricles are normal in size and shape. Brain: No midline shift. No intracranial masses or hemorrhage. May-white matter interface is norm al. Skull and face: Calvarium and visualized facial bones are intact, without suspicious lesions. Sinuses: Visualized sinuses and mastoids are clear. IMPRESSION: No acute intracranial pathology. Reviewed by: Barrett Cruz MD on 04/20/2024 1:57 PM [place] Approved by: Barrett Cruz MD on 04/20/2024 1:57 PM [place] Station ID: [id number]
[2024-04-20 15:22] LABS: B. PARAPERTUSSIS- RESP PCR PAN NOT DETECTED; B. PERTUSSIS- RESP PCR PANEL NOT DETECTED; C. PNEUMONIAE- RESP PCR PANEL NOT DETECTED; CORONAVIRUS 229E-RESP PCR NOT DETECTED; CORONAVIRUS HKU1-RESP PCR NOT DETECTED; CORONAVIRUS NL63-RESP PCR NOT DETECTED; CORONAVIRUS OC43-RESP PCR NOT DETECTED; HUMAN METAPNEUMOVIRUS NOT DETECTED; INFLUENZA A- RESP PCR PANEL NOT DETECTED; INFLUENZA B - RESP PCR PANEL NOT DETECTED; M. PNEUMONIAE- RESP PCR PANEL NOT DETECTED; PARAINFLUENZA VIRUS 1 NOT DETECTED; PARAINFLUENZA VIRUS 2 NOT DETECTED; PARAINFLUENZA VIRUS 3 NOT DETECTED; PARAINFLUENZA VIRUS 4 NOT DETECTED; RHINOVIRUS/ENTEROVIRUS NOT DETECTED; RSV- RESP PCR PANEL NOT DETECTED; SARS-CoV-2 -RESP PCR PANEL NOT DETECTED
[2024-04-20 16:04] VITALS: BP 130/80; O2SAT 100
== END 2024-04-20 15:45 | disposition home or self-care (01) ==
LOC: ED 13:43
DX: G43.909 Migraine, unspecified, not intractable, without status migrainosus (principal); E86.0 Dehydration; D68.51 Activated protein C resistance
CPT/HCPCS: 36415; 80053; 83690; 83735; 85025; 87633; 93005; 96361; 96374; 96375; 99284